=== PATIENT | female | born 2000 | race Two or more races ===

== ENCOUNTER 2024-11-30 05:38 | Day surgery (SDC) | payer OTHER ==
[2024-11-27 12:19] VITALS: BP 108/74
[~2024-11-30] VITALS: Ht 162.6 cm; Wt 56.2 kg
[~2024-11-30 05:38] MED LIST: NP THYROID30 MG PO
[2024-11-30] MEDS ORDERED: CEFAZOLIN SODIUM 1,000 MG VIAL IV ONE (09:15)
== END 2024-11-30 12:30 | disposition home or self-care (01) ==
LOC: CIR.AMB 05:38
PROVIDERS: ATTEND Surgery
DX: D24.1 Benign neoplasm of right breast (principal)